=== PATIENT | female | born 2000 | race Caucasian/White ===

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

== ENCOUNTER 2022-04-01 17:37 | Emergency (ER) | payer MEDICAID ==
[2022-04-01] MEDS ORDERED: Sodium Chloride 0.9% 10 ML Syringe FLUSH PRN (18:01)
[2022-04-01] MEDS ORDERED: Sodium Chloride 0.9% 1,000 ML IV STA (18:01)
[2022-04-01 18:02] VITALS: BP 139/87; PULSE 88
== END 2022-04-01 20:32 | disposition home or self-care (01) ==
LOC: JD.ED 17:37
DX: O23.42 Unspecified infection of urinary tract in pregnancy, second trimester (principal); N39.0 Urinary tract infection, site not specified; O21.9 Vomiting of pregnancy, unspecified; Z86.16 Personal history of COVID-19; Z3A.14 14 weeks gestation of pregnancy
CPT/HCPCS: 36415; 80053; 81001; 85025; 87086; 87088; 87186; 96360; 99284; J3490; J7030

== ENCOUNTER 2022-04-18 17:27 | Emergency (ER) | payer MEDICAID ==
[2022-04-18 17:45] VITALS: BP 122/66; PULSE 93
[2022-04-18] MEDS ORDERED: Sodium Chloride 0.9% 1,000 ML IV STA (18:05)
[2022-04-18] MEDS ORDERED: Acetaminophen 325 MG Tab PO SCH (19:00)
[2022-04-18 19:01] LABS: ESTIMATED GFR > 60 mL/min (>60)
[2022-04-18] MEDS ORDERED: Ondansetron 4 MG/2 ML SDV IVPUSH ONE (19:50)
== END 2022-04-18 20:44 | disposition home or self-care (01) ==
LOC: JD.ED 17:27
DX: O21.9 Vomiting of pregnancy, unspecified (principal); Z3A.17 17 weeks gestation of pregnancy; E66.9 Obesity, unspecified; Z68.37 Body mass index [BMI] 37.0-37.9, adult; Z86.16 Personal history of COVID-19; Z79.899 Other long term (current) drug therapy
CPT/HCPCS: 36415; 80053; 81001; 83735; 85025; 96361; 96374; 99284; A9270; J2405; J7030; 99283

== ENCOUNTER 2022-05-28 11:21 | Emergency (ER) | payer MEDICAID ==
[2022-05-28 12:05] VITALS: BP 116/53; PULSE 116
[2022-05-28] MEDS ORDERED: Ondansetron 4 MG/2 ML SDV IVPUSH ONE (12:29)
[2022-05-28] MEDS ORDERED: Sodium Chloride 0.9% 10 ML Syringe FLUSH PRN (12:29)
[2022-05-28] MEDS ORDERED: Sodium Chloride 0.9% 1,000 ML IV ONE (12:38)
== END 2022-05-28 14:15 | disposition home or self-care (01) ==
LOC: JD.ED 11:21
DX: O99.892 Other specified diseases and conditions complicating childbirth (principal); U07.1 COVID-19; E87.6 Hypokalemia; Z3A.37 37 weeks gestation of pregnancy; E66.9 Obesity, unspecified; Z68.30 Body mass index [BMI] 30.0-30.9, adult; Z86.16 Personal history of COVID-19; Z79.899 Other long term (current) drug therapy
CPT/HCPCS: 36415; 80053; 83735; 85025; 86140; 87635; 96361; 96374; 99284; J2405; J3490; J7030; 99283; U0002

== ENCOUNTER 2022-09-28 19:31 | Inpatient (IN) | payer MEDICAID ==
[2022-09-28] MEDS ORDERED: Calcium Carbonate 500 MG Tab.Chew PO PRN (19:43)
[2022-09-28] MEDS ORDERED: Ondansetron 4 MG/2 ML SDV IVPUSH PRN (19:43)
[2022-09-28] MEDS ORDERED: Sodium Chloride 0.9% 10 ML Syringe FLUSH PRN (19:43)
[2022-09-28] MEDS: Misoprostol 25 MCG (1/4 of 100 MCG) Tab VAG PRN (20:24)
[2022-09-28] MEDS: Sodium Chloride 0.9% 10 ML Syringe FLUSH SCH (22:18)
[2022-09-29] MEDS ORDERED: Lidocaine 1% 10 ML MDV ONE
[2022-09-29] MEDS: Misoprostol 25 MCG (1/4 of 100 MCG) Tab VAG PRN ×2 (00:46→04:49)
[2022-09-29] MEDS: Nalbuphine HCl 10 MG/ 1ML Amp IVPUSH PRN ×2 (07:42→12:42)
[2022-09-29] MEDS ORDERED: Oxytocin/Lactated Ringers 10 UNIT/1,000 ML BAG IV SCH (09:00)
[2022-09-29] MEDS: Lactated Ringers 1,000 ML IV SCH ×3 (09:06→15:12)
[2022-09-29] MEDS ORDERED: diphenhydrAMINE 50 MG/ML SDV IVPUSH PRN ×3 (14:08→22:36)
[2022-09-29] MEDS ORDERED: ePHEDrine 50 MG/ML SDV IVPUSH PRN ×2 (14:08→22:36)
[2022-09-29] MEDS ORDERED: Bupivacaine/fentaNYL/NS 100 ML Bag EPIDUR PRN (14:08)
[2022-09-29] MEDS ORDERED: fentaNYL 100 MCG/2 ML SDV EPIDUR PRN ×2 (14:08→14:16)
[2022-09-29] MEDS ORDERED: Citric Acid/Sodium Citrate Solution 30 ML Cup PO ONE (19:37)
[2022-09-29] MEDS ORDERED: Metoclopramide 10 MG/2 ML SDV IVPUSH ONE (19:37)
[2022-09-29] MEDS ORDERED: ceFAZolin 2 GM in Sodium Chloride 0.9% 50 ML IV ONE (19:37)
[2022-09-29] MEDS ORDERED: Azithromycin 500 MG in Sodium Chloride 0.9% 250 ML IV ONE (19:37)
[2022-09-29] MEDS ORDERED: fentaNYL 100 MCG/2 ML SDV ONE (20:03)
[2022-09-29] MEDS ORDERED: Lidocaine 2% with EPINEPHrine 1:200,000 20 ML SDV ONE (20:04)
[2022-09-29] MEDS ORDERED: ceFAZolin 2 GM Vial ONE (20:20)
[2022-09-29] MEDS ORDERED: Ondansetron 4 MG/2 ML SDV ONE (20:31)
[2022-09-29] MEDS ORDERED: Methylergonovine 0.2 MG/1 ML Amp ONE (20:38)
[2022-09-29] MEDS ORDERED: Dexmedetomidine 200 MCG/2 ML SDV ONE (20:43)
[2022-09-29] MEDS ORDERED: Morphine PF 10 MG/10 ML SDV ONE (20:49)
[2022-09-29] MEDS ORDERED: Phenylephrine HCl In 0.9% NaCl 1 MG/10 ML Vial ONE (20:53)
[2022-09-29] MEDS ORDERED: Ketorolac 30 MG/ML SDV ONE (21:01)
[2022-09-29] MEDS ORDERED: fentaNYL 100 MCG/2 ML SDV IVPUSH PRN (21:30)
[2022-09-29] MEDS ORDERED: Ondansetron 4 MG/2 ML SDV IVPUSH PRN (21:30)
[2022-09-29] MEDS ORDERED: Naloxone 0.4 MG/ML SDV IVPUSH PRN (22:36)
[2022-09-29] MEDS ORDERED: Dextrose 5%-Lactated Ringers 1,000 ML IV SCH (22:36)
[2022-09-29] MEDS ORDERED: Docusate Sodium 100 MG Cap PO PRN (22:36)
[2022-09-29] MEDS ORDERED: Acetaminophen/oxyCODONE 325-5 MG Tab PO PRN (22:36)
[2022-09-29] MEDS ORDERED: Ondansetron 4 MG/2 ML SDV IV PRN (22:36)
[2022-09-29] MEDS: Sodium Chloride 0.9% 10 ML Syringe FLUSH SCH (23:07)
[2022-09-30] MEDS: Ketorolac 30 MG/ML SDV IVPUSH SCH ×3 (03:29→16:39)
[2022-10-01] MEDS: Ibuprofen 600 MG Tab PO PRN ×2 (04:51→20:36)
[2022-10-01] MEDS: Acetaminophen/oxyCODONE 325-5 MG Tab PO PRN ×2 (04:52→14:54)
[2022-10-02 07:24] VITALS: BP 123/83; PULSE 84
[2022-10-02] MEDS ORDERED: Magnesium Hydroxide 400 MG/5 ML Susp 30 ML Cup PO PRN (09:18)
== END 2022-10-02 13:50 | disposition home or self-care (01) | DRG 788 ==
LOC: JD.OB 19:31 → OBSVTOIN 09-29 20:30 → JD.OB 09-29 20:40
PROVIDERS: ADMIT Obstetrics & Gynecology; ATTEND Obstetrics & Gynecology
PROC: 10D00Z1 Extraction of Products of Conception, Low, Open Approach (ICD-10-PCS; principal; 2022-09-29)
PROC: 3E0R3BZ Introduction of Anesthetic Agent into Spinal Canal, Percutaneous Approach (ICD-10-PCS; 2022-09-29)
PROC: 00HU33Z Insertion of Infusion Device into Spinal Canal, Percutaneous Approach (ICD-10-PCS; 2022-09-29)
PROC: 10H07YZ Insertion of Other Device into Products of Conception, Via Natural or Artificial Opening (ICD-10-PCS; 2022-09-29)
DX: O48.0 Post-term pregnancy (principal); Z3A.40 40 weeks gestation of pregnancy; Z37.0 Single live birth; O76 Abnormality in fetal heart rate and rhythm complicating labor and delivery; O99.214 Obesity complicating childbirth; E66.9 Obesity, unspecified; O99.344 Other mental disorders complicating childbirth; F41.8 Other specified anxiety disorders
CPT/HCPCS: 36415; 51702; 59025; 85025; 85027; 86592; 94762; A9270-GY; C1726; J0456; J0690; J1200; J1885; J2210; J2274; J2300; J2405; J2590; J3010; J7050; J7120; J7121

== ENCOUNTER 2024-08-11 23:00 | Emergency (ER) | payer MEDICAID ==
[2024-08-11] MEDS: Sodium Chloride 0.9% 10 ML Syringe FLUSH PRN (23:25)
[2024-08-11 23:46] LABS: BASOPHILS ABSOLUTE AUTO 0.1 K/mm3 (0.0-0.2); BASOPHILS PERCENT AUTO 0.8 % (0.0-1.0); EOSINOPHILS ABSOLUTE AUTO 0.3 K/mm3 (0.0-0.4); EOSINOPHILS PERCENT AUTO 3.1 % (0.0-6.0); HEMATOCRIT 38.2 % (37.0-47.0); HEMOGLOBIN 11.8 gm/dl (12.0-16.0); IMMATURE GRAN ABSOLUTE AUTO 0.01 K/mm3 (0.00-0.05); IMMATURE GRAN PERCENT AUTO 0.1 % (0.0-0.4); LYMPHOCYTES ABSOLUTE AUTO 2.9 K/mm3 (1.0-4.8); LYMPHOCYTES PERCENT AUTO 35.9 % (24.0-44.0); MEAN CORPUSCULAR HEMOGLOBIN 24.2 pg (28.0-32.0); MEAN CORPUSCULAR HGB CONC 30.9 g/dl (32.0-36.0); MEAN CORPUSCULAR VOLUME 78.4 fl (83.0-99.0); MEAN PLATELET VOLUME 8.8 fl (9.4-12.3); MONOCYTES ABSOLUTE AUTO 0.6 K/mm3 (0.0-0.8); NEUTROPHILS ABSOLUTE AUTO 4.2 K/mm3 (1.8-7.7); NEUTROPHILS PERCENT AUTO 53.1 % (41.0-71.0); PLATELET COUNT,PLT 339 K/mm3 (150-400); RED BLOOD CELL COUNT 4.87 M/mm3 (4.10-5.30); WHITE BLOOD CELL COUNT,WBC 7.96 K/mm3 (3.9-11.3)
[2024-08-11 23:56] LABS: A/G RATIO 1.1 (1-2); ALBUMIN 3.9 g/dl (3.4-5.0); ANION GAP 10.6 (5-15); BILIRUBIN TOTAL 0.1 mg/dL (0.2-1.0); EST CRCL DRUG DOSING (CG) 69.79 mL/min; POTASSIUM,K 3.6 mEq/L (3.5-5.1); PROTEIN TOTAL,TP 7.6 g/dl (6.4-8.2)
[2024-08-11] MEDS: Sodium Chloride 0.9% 1,000 ML IV SCH (23:56)
[2024-08-11] MEDS: Ondansetron 4 MG/2 ML SDV IVPUSH ONE (23:56)
[2024-08-12 01:32] VITALS: BP 114/70; PULSE 64
== END 2024-08-12 01:14 | disposition home or self-care (01) ==
LOC: JD.ED 23:00
DX: R55 Syncope and collapse (principal); E66.9 Obesity, unspecified; Z68.41 Body mass index [BMI] 40.0-44.9, adult; Z86.16 Personal history of COVID-19; Z79.899 Other long term (current) drug therapy
CPT/HCPCS: 36415; 80053; 84703; 85025; 93005; 96361; 96374; 99284; J2405; J3490; J7030